=== PATIENT | male | born 1980 | race Caucasian/White ===

== ENCOUNTER 2017-12-21 12:14 | Emergency (ER) | payer OTHER ==
[~2017-12-21] VITALS: Ht 170.2 cm; Wt 88.5 kg
[~2017-12-21 12:14] MED LIST: CELEXA10 MG PO; CELEXA20 MG PO; LISINOPRIL5 MG; LISINOPRIL5 MG PO; SUBOXONE 8 MG-1 EAC3; TRAMADOL 50 MG50 MG PO
[2017-12-21 12:20] VITALS: BP 133/93
[2017-12-21] MEDS ORDERED: TRAMADOL 50 MG50 MG PO (12:45)
[2017-12-21] MEDS ORDERED: AMOXICILLIN 50500 MG PO (12:45)
== END 2017-12-21 12:50 | disposition home or self-care (01) ==
LOC: M.ERS 12:14
DX: K08.89 Other specified disorders of teeth and supporting structures (principal)

== ENCOUNTER 2018-04-23 12:04 | Emergency (ER) | payer OTHER ==
[~2018-04-23] VITALS: Ht 172.7 cm; Wt 88.5 kg
[~2018-04-23 12:04] MED LIST changes: +AMOXICILLIN 50500 MG PO
[2018-04-23 12:14] VITALS: BP 142/76
== END 2018-04-23 12:36 | disposition home or self-care (01) ==
LOC: M.ERS 12:04
DX: R11.2 Nausea with vomiting, unspecified (principal); F17.210 Nicotine dependence, cigarettes, uncomplicated; Z98.890 Other specified postprocedural states

== ENCOUNTER 2018-05-20 18:13 | Emergency (ER) | payer OTHER ==
[~2018-05-20] VITALS: Ht 170.2 cm; Wt 88.5 kg
[2018-05-20 19:01] LABS: HEMATOCRIT 49.4 % (42.0-52.0); HEMOGLOBIN 17.1 gm/dL (14.0-18.0); MCH 31.5 pg (26.0-34.0); MCHC 34.6 g/dL (28.0-37.0); MCV 90.9 fL (80.0-100.0); MPV 8.8 fl. (7.2-11.1); NUCLEATED RBCS 0 /100WBC; PLATELET COUNT* 169 thou/uL (150-400); RBC 5.44 mil/uL (4.50-6.00); RDW-CV 13.5 % (10.5-14.5); WBC 12.7 thou/uL (4.0-11.0)
[2018-05-20 19:12] LABS: CALCIUM 8.7 mg/dL (8.5-10.1); CREATININE 0.9 mg/dL (0.6-1.3); POTASSIUM 3.8 mmol/L (3.5-5.1)
[2018-05-20 19:18] LABS: ALBUMIN 3.8 g/dL (3.4-5.0); TOTAL BILIRUBIN 0.9 mg/dL (<0.1-1.0); TOTAL PROTEIN 7.3 g/dL (6.4-8.2)
[2018-05-20 19:33] LABS: ABSOLUTE LYMPHOCYTES 0.6 thou/uL (0.8-5.3); ABSOLUTE MONOCYTES 0.5 thou/uL (0.0-1.2); ABSOLUTE NEUTROPHILS 11.6 thou/uL (1.6-8.1); PLATELET ESTIMATE ADEQUATE
[2018-05-20] MEDS ORDERED: PREDNISONE50 MG PO (19:50)
[2018-05-20] MEDS ORDERED: ZPAK PO (19:50)
[2018-05-20] MEDS ORDERED: VENTOLIN HFA 1818 GM INH (19:50)
[2018-05-20 20:10] VITALS: BP 127/84
== END 2018-05-20 20:13 | disposition home or self-care (01) ==
LOC: M.ERS 18:13
PROVIDERS: Nurse Practitioner Family
DX: J18.1 Lobar pneumonia, unspecified organism (principal); F17.210 Nicotine dependence, cigarettes, uncomplicated; Z86.19 Personal history of other infectious and parasitic diseases

== ENCOUNTER 2018-06-20 17:52 | Emergency (ER) | payer OTHER ==
[~2018-06-20] VITALS: Ht 172.7 cm; Wt 86.2 kg
[~2018-06-20 17:52] MED LIST changes: +PREDNISONE50 MG PO; +VENTOLIN HFA 1818 GM INH; +ZPAK PO
[2018-06-20] MEDS ORDERED: LISINOPRIL5 MG PO (18:05)
[2018-06-20] MEDS ORDERED: TRAMADOL 50 MG50 MG PO (18:41)
[2018-06-20 18:52] VITALS: BP 145/74
== END 2018-06-20 18:53 | disposition home or self-care (01) ==
LOC: M.ERS 17:52
DX: M72.2 Plantar fascial fibromatosis (principal); F17.210 Nicotine dependence, cigarettes, uncomplicated; Z98.890 Other specified postprocedural states

== ENCOUNTER 2018-07-15 09:21 | Emergency (ER) | payer OTHER ==
[~2018-07-15] VITALS: Ht 172.7 cm; Wt 88.5 kg
[2018-07-15] MEDS ORDERED: ULTRAM 50MG TAB50 MG PO (09:46)
[2018-07-15] MEDS ORDERED: PREDNISONE 20 M20 M1 PO (09:46)
[2018-07-15 09:52] VITALS: BP 141/84
== END 2018-07-15 09:53 | disposition home or self-care (01) ==
LOC: M.ERS 09:21
DX: M79.672 Pain in left foot (principal); M79.671 Pain in right foot; F17.210 Nicotine dependence, cigarettes, uncomplicated; Z86.19 Personal history of other infectious and parasitic diseases

== ENCOUNTER 2018-07-17 11:03 | Emergency (ER) | payer OTHER ==
[~2018-07-17] VITALS: Ht 170.2 cm; Wt 88.5 kg
[~2018-07-17 11:03] MED LIST changes: +PREDNISONE 20 M20 M1 PO; +ULTRAM 50MG TAB50 MG PO
[2018-07-17 11:09] VITALS: BP 132/87
[2018-07-17] MEDS ORDERED: PENICILLIN VK500 MG PO (11:15)
== END 2018-07-17 11:24 | disposition home or self-care (01) ==
LOC: M.ERS 11:03
DX: K02.9 Dental caries, unspecified (principal); F17.210 Nicotine dependence, cigarettes, uncomplicated; Z86.19 Personal history of other infectious and parasitic diseases

== ENCOUNTER 2019-04-20 18:52 | Emergency (ER) | payer BC ==
[~2019-04-20] VITALS: Ht 172.7 cm; Wt 88.5 kg
[~2019-04-20 18:52] MED LIST changes: +PENICILLIN VK500 MG PO
[2019-04-20 18:58] VITALS: BP 134/89
== END 2019-04-20 19:18 | disposition home or self-care (01) ==
LOC: M.ERS 18:52
DX: R51 Headache (principal); F17.210 Nicotine dependence, cigarettes, uncomplicated

== ENCOUNTER 2019-09-14 13:54 | Emergency (ER) | payer BC ==
[~2019-09-14] VITALS: Ht 172.7 cm; Wt 88.5 kg
[2019-09-14] MEDS ORDERED: SUBOXONE 8 MG-1 EAC3 SUBLING (14:04)
[2019-09-14 14:23] LABS: URINE BILIRUBIN NEGATIVE (Negative); URINE BLOOD NEGATIVE (Negative); URINE CLARITY CLEAR; URINE COLOR YELLOW; URINE GLUCOSE-RANDOM NEGATIVE (Negative); URINE KETONES NEGATIVE (Negative); URINE LEUKOCYTES-REFLEX NEGATIVE (Negative); URINE NITRITE-REFLEX NEGATIVE (Negative); URINE PROTEIN NEGATIVE (Negative); URINE SPECIFIC GRAVITY 1.015 (1.005-1.030); URINE UROBILINOGEN 0.2 E.U./dl (0.2-1.0)
[2019-09-14 14:32] LABS: AMP/METHAMP Negative (Negative); BARBITURATES Negative (Negative); BENZODIAZEPINES Negative (Negative); COCAINE Negative (Negative); METHADONE Negative (Negative); OPIATES Negative (Negative); PCP Negative (Negative); THC Negative (Negative)
[2019-09-14] MEDS ORDERED: CLONIDINE HCL0.2 M2 PO (15:25)
[2019-09-14] MEDS ORDERED: ONDANSETRON HCL4 M2 PO (15:25)
[2019-09-14 15:50] VITALS: BP 148/85
== END 2019-09-14 15:51 | disposition home or self-care (01) ==
LOC: M.ERS 13:54
PROVIDERS: Nurse Practitioner Family
DX: F19.939 Other psychoactive substance use, unspecified with withdrawal, unspecified (principal); R00.0 Tachycardia, unspecified; F17.210 Nicotine dependence, cigarettes, uncomplicated; Z79.899 Other long term (current) drug therapy; Z86.19 Personal history of other infectious and parasitic diseases

== ENCOUNTER 2020-11-27 14:25 | Emergency (ER) | payer BC ==
[~2020-11-27] VITALS: Ht 170.2 cm; Wt 90.7 kg
[~2020-11-27 14:25] MED LIST changes: +CLONIDINE HCL0.2 M2 PO; +ONDANSETRON HCL4 M2 PO; +SUBOXONE 8 MG-1 EAC3 SUBLING
[2020-11-27] MEDS ORDERED: FLEXERIL PO (15:36)
[2020-11-27] MEDS ORDERED: HYDROXYZINE HCL25 M2 PO (15:36)
[2020-11-27 15:43] VITALS: BP 170/94
== END 2020-11-27 15:45 | disposition home or self-care (01) ==
LOC: M.ERS 14:25
DX: F19.239 Other psychoactive substance dependence with withdrawal, unspecified (principal); Z76.0 Encounter for issue of repeat prescription; F17.210 Nicotine dependence, cigarettes, uncomplicated; Z86.19 Personal history of other infectious and parasitic diseases

== ENCOUNTER 2021-04-11 16:57 | Emergency (ER) | payer BC ==
[~2021-04-11] VITALS: Ht 172.7 cm; Wt 90.7 kg
[~2021-04-11 16:57] MED LIST changes: +FLEXERIL PO; +HYDROXYZINE HCL25 M2 PO
[2021-04-11 17:10] VITALS: BP 154/103
[2021-04-11] MEDS ORDERED: ZOFRAN ODT4 MG DISSOLVE (17:22)
[2021-04-11] MEDS ORDERED: ATIVAN1 M1 PO (17:22)
== END 2021-04-11 17:37 | disposition home or self-care (01) ==
LOC: M.ERS 16:57
DX: F10.10 Alcohol abuse, uncomplicated (principal); R11.0 Nausea; F17.210 Nicotine dependence, cigarettes, uncomplicated; Z98.890 Other specified postprocedural states; Z79.899 Other long term (current) drug therapy

== ENCOUNTER 2021-04-13 13:39 | Emergency (ER) | payer BC ==
[~2021-04-13] VITALS: Ht 172.7 cm; Wt 90.7 kg
[~2021-04-13 13:39] MED LIST changes: +ATIVAN1 M1 PO; +ZOFRAN ODT4 MG DISSOLVE
[2021-04-13 14:19] LABS: ABSOLUTE EOSINOPHILS 0.3 thou/uL (0.0-0.7); ABSOLUTE LYMPHOCYTES 1.2 thou/uL (0.8-5.3); ABSOLUTE MONOCYTES 0.6 thou/uL (0.0-1.2); WBC 6.2 thou/uL (4.0-11.0)
[2021-04-13 14:28] LABS: ABSOLUTE BASOPHILS 0.1 thou/uL (0.0-0.2); BASOPHILS 0.9 %; EOSINOPHILS 4.9 %; HEMATOCRIT 50.3 % (42.0-52.0); HEMOGLOBIN 17.9 gm/dL (14.0-18.0); LYMPHOCYTES 19.6 %; MCH 34.5 pg (26.0-34.0); MCHC 35.7 g/dL (28.0-37.0); MCV 96.7 fL (80.0-100.0); MONOCYTES 10.4 %; MPV 7.5 fl. (7.2-11.1); NUCLEATED RBCS 0 /100WBC; PLATELET COUNT* 178 thou/uL (150-400); POLYS 64.2 %; RBC 5.21 mil/uL (4.50-6.00); RDW-CV 13.3 % (10.5-14.5)
[2021-04-13 14:33] LABS: CALCIUM 9.5 mg/dL (8.5-10.1); CREATININE 0.8 mg/dL (0.6-1.3); POTASSIUM 3.4 mmol/L (3.5-5.1)
[2021-04-13 14:36] LABS: ALBUMIN 4.3 g/dL (3.4-5.0); TOTAL BILIRUBIN 1.4 mg/dL (<0.1-1.0); TOTAL PROTEIN 8.3 g/dL (6.4-8.2)
[2021-04-13] MEDS ORDERED: ZOFRAN ODT4 MG DISSOLVE (15:17)
[2021-04-13] MEDS ORDERED: NEURONTIN 400400 M1 PO (15:17)
[2021-04-13 15:30] VITALS: BP 161/111
--- NOTE | 2021-04-14 13:56 | EKG ---
[place] [address] ELECTROCARDIOGRAM REPORT Name: KIRK VALLEJO Room: [facility]#: [id number] Admission: 04/13/21 Attend Phys: Discharge: 04/13/21 Date of : 76 Date of Service: 04/13/21 1434 Report #: [id number] THIS REPORT FOR: //name// [facility] ED Test Date: 2021-04-13 Test Time: 14:34:02 Pat Name: KIRK VALLEJO Department: Room: Gender: [place] Lead: : 1980 Requested By: Rosalio Kaur Order Number: [id number] MD: Bon Mata Measurements Intervals [place] Rate: 114 P: 32 OR: 160 QRS: -40 QRSD: 88 T: 19 QT: 326 QTc: 449 Interpretive Statements Sinus tachycardia Probable left atrial enlargement Inferior infarct, old Probable anteroseptal infarct, recent Baseline wander in lead(s) V1 Compared to ECG 06/21/2017 16:53:23 Sinus rate has increased Q waves no longer present Myocardial infarct finding still present Electronically Signed On 04-14-2021 13:55:56 CDT by Bon Mata [email or web address] <ELECTRONICALLY SIGNED> By: Bon Mata MD, [facility] 04/14/21 1355 1434 1434 Bon Mata MD, [facility] /EPI
== END 2021-04-13 15:30 | disposition home or self-care (01) ==
LOC: M.ERS 13:39
PROVIDERS: Emergency Medicine Emergency Medical Services
DX: F10.239 Alcohol dependence with withdrawal, unspecified (principal); Y90.9 Presence of alcohol in blood, level not specified; F17.210 Nicotine dependence, cigarettes, uncomplicated; Z86.19 Personal history of other infectious and parasitic diseases

== ENCOUNTER 2022-01-05 08:37 | Inpatient (IN) | payer OTHER ==
[~2022-01-05] VITALS: Ht 177.8 cm; Wt 77.1 kg
[2022-01-05] VITALS (12 sets, daily range): BP systolic 83–106; BP diastolic 38–60
[~2022-01-05 08:37] MED LIST changes: +NEURONTIN 400400 M1 PO
[2022-01-05 09:31] LABS: ABSOLUTE EOSINOPHILS 0.1 thou/uL (0.0-0.7); ABSOLUTE LYMPHOCYTES 0.7 thou/uL (0.8-5.3); ABSOLUTE NEUTROPHILS 10.5 thou/uL (1.6-8.1); BASOPHILS 0.4 %; EOSINOPHILS 0.7 %; HEMATOCRIT 43.8 % (42.0-52.0); HEMOGLOBIN 14.9 gm/dL (14.0-18.0); LYMPHOCYTES 5.9 %; MCH 32.6 pg (26.0-34.0); MCV 96.1 fL (80.0-100.0); MONOCYTES 8.2 %; MPV 9.5 fl. (7.2-11.1); NUCLEATED RBCS 0 /100WBC; PLATELET COUNT* 65 thou/uL (150-400); POLYS 84.8 %; RBC 4.56 mil/uL (4.50-6.00); RDW-CV 13.5 % (10.5-14.5); WBC 12.4 thou/uL (4.0-11.0)
[2022-01-05 09:34] LABS: CALCIUM 7.3 mg/dL (8.5-10.1); CREATININE 13.9 mg/dL (0.6-1.3); POTASSIUM 3.6 mmol/L (3.5-5.1)
[2022-01-05 09:36] LABS: APTT 46.6 Seconds (25.0-31.3); INR 3.8; PROTIME 36.9 Seconds (9.20-11.50)
[2022-01-05 09:47] LABS: ALBUMIN 3.1 g/dL (3.4-5.0); TOTAL BILIRUBIN 19.8 mg/dL (<0.1-1.0); TOTAL PROTEIN 5.1 g/dL (6.4-8.2)
[2022-01-05 10:33] LABS: URINE BLOOD 3+ (Negative); URINE CLARITY CLEAR; URINE COLOR BROWN; URINE GLUCOSE-RANDOM TRACE (Negative); URINE KETONES TRACE (Negative); URINE LEUKOCYTES-REFLEX TRACE (Negative); URINE PROTEIN 2+ (Negative); URINE SPECIFIC GRAVITY 1.025 (1.005-1.030)
[2022-01-05 10:35] LABS: URINE BILIRUBIN 3+ (Negative); URINE NITRITE-REFLEX POSITIVE (Negative)
[2022-01-05 10:44] LABS: AMP/METHAMP Negative (Negative); BARBITURATES Negative (Negative); BENZODIAZEPINES Negative (Negative); COCAINE Negative (Negative); METHADONE Negative (Negative); OPIATES Negative (Negative); PCP Negative (Negative); THC POSITIVE (Negative)
[2022-01-05 10:48] LABS: BACTERIA-REFLEX >30 Many /HPF (None Seen); MUCUS >6 Heavy strn/LPF (None Seen); SQUAMOUS 4-10 Moderate /LPF (0-3); URINE WBC-REFLEX 6-15 Few /HPF (0-5)
[2022-01-05 10:49] LABS: HYALINE CASTS 0-3 Few /LPF (None Seen)
--- NOTE | 2022-01-05 12:38 | EKG ---
[place] [address] ELECTROCARDIOGRAM REPORT Name: KIRK VALLEJO Kalee Room: [place] [address] ADM IN [facility]#: [id number] Admission: 01/05/22 Attend Phys: Karol De Luna Discharge: Date of : 76 Date of Service: 01/05/22 0843 Report #: [id number] THIS REPORT FOR: //name// [facility] ED Test Date: 2022-01-05 Test Time: 08:43:58 Pat Name: KIRK VALLEJO Department: Room: [facility] Gender: M Ice Cream Dipper: : 1980 Requested By: Rosalio Kaur Order Number: [id number] MD: Aleksander Barrientos Measurements Intervals [place] Rate: 76 P: 34 NV: 168 QRS: -36 QRSD: 110 T: 45 QT: 411 QTc: 463 Interpretive Statements Sinus rhythm septal q waves Left axis deviation Baseline wander in lead(s) V2 Compared to ECG 04/13/2021 14:34:02 Sinus tachycardia no longer present Electronically Signed On 01-05-2022 12:38:04 UNDER [employer]ERIFF by Aleksander Barrientos [email or web address] <ELECTRONICALLY SIGNED> By: Aleksander Barrientos MD, [facility] 01/05/22 1238 0843 0843 Aleksander Barrientos MD, [facility] /EPI
[2022-01-06] VITALS (44 sets, daily range): BP systolic 82–125; BP diastolic 39–73
[2022-01-06 03:16] LABS: HEMATOCRIT 35.9 % (42.0-52.0); MCH 33.1 pg (26.0-34.0); MCHC 35.2 g/dL (28.0-37.0); MCV 94.3 fL (80.0-100.0); MPV 9.4 fl. (7.2-11.1); RBC 3.81 mil/uL (4.50-6.00); RDW-CV 13.6 % (10.5-14.5); WBC 10.4 thou/uL (4.0-11.0)
[2022-01-06 03:21] LABS: HEMOGLOBIN 12.6 gm/dL (14.0-18.0)
[2022-01-06 03:27] LABS: POTASSIUM 3.5 mmol/L (3.5-5.1)
[2022-01-06 03:28] LABS: CREATININE 15.1 mg/dL (0.6-1.3)
[2022-01-06 13:47] LABS: ABSOLUTE EOSINOPHILS 0.2 thou/uL (0.0-0.7); ABSOLUTE LYMPHOCYTES 0.7 thou/uL (0.8-5.3); ABSOLUTE MONOCYTES 1.2 thou/uL (0.0-1.2); ABSOLUTE NEUTROPHILS 9.7 thou/uL (1.6-8.1); BASOPHILS 0.4 %; EOSINOPHILS 1.5 %; HEMATOCRIT 31.2 % (42.0-52.0); HEMOGLOBIN 10.7 gm/dL (14.0-18.0); LYMPHOCYTES 5.7 %; MCH 32.8 pg (26.0-34.0); MCHC 34.2 g/dL (28.0-37.0); MCV 95.8 fL (80.0-100.0); MONOCYTES 9.8 %; MPV 9.1 fl. (7.2-11.1); NUCLEATED RBCS 0 /100WBC; PLATELET COUNT* 58 thou/uL (150-400); POLYS 82.6 %; RBC 3.26 mil/uL (4.50-6.00); RDW-CV 13.2 % (10.5-14.5); WBC 11.7 thou/uL (4.0-11.0)
--- NOTE | 2022-01-06 13:48 | 2DMMODE ---
[place] [address] 2 D/M-MODE ECHOCARDIOGRAM Name: ANÍBAL VALLEJO Room: [address] IN [facility]#: [id number] Admission: 01/05/22 Attend Phys: Karol De Luna Discharge: Date of : 76 Date of Service: 01/06/22 1348 Report #: [id number] THIS REPORT FOR: cc: Juan Carlos Perez Lewis DO Liston, Michael J. MD [facility] ~ APPROVED REPORT Study performed: 01/06/2022 09:43:19 EXAM: Comprehensive 2D, Doppler, and color-flow Echocardiogram Patient Location: In-Patient Room #: [facility] Status: routine BSA: 1.95 HR: 86 bpm BP: 99/57 mmHg Rhythm: NSR Other Information Study Quality: Good Indications heart failure 2D Dimensions IVSd: 11.28 (7-11mm) LVOT Diam: 21.25 (18-24mm) LVDd: 46.33 mm PWd: 9.42 (7-11mm) Ascending Ao: 30.05 (22-36mm) LVDs: 25.47 (25-40mm) Aortic Root: 33.42 mm Volumes Left Atrial Volume (Systole) LA ESV Index: 30.70 mL/m2 Aortic Valve AoV Peak Pedro.: 1.49 m/s AO Peak Gr.: 8.89 mmHg LVOT Max P.36 mmHg AO Mean Gr.: 4.45 mmHg LVOT Mean P.35 mmHg LVOT Max V: 1.36 m/s AO V2 VTI: 28.19 cm LVOT Mean V: 0.83 m/s RICKI (VTI): 3.64 cm2 LVOT V1 VTI: 28.96 [place] [address] 2 D/M-MODE ECHOCARDIOGRAM Name: ANÍBAL VALLEJO Room: [address] IN ..#: [id number] Admission: 01/05/22 Attend Phys: Karol De Luna Discharge: Date of : 76 Date of Service: 01/06/22 1348 Report #: [id number] Mitral Valve E/A Ratio: 1.41 MV Decel. Time: 236.20 ms MV E Max Pedro.: 1.22 m/s MV PHT: 68.50 ms MVA (PHT): 3.21 cm2 TDI E/Lateral E': 7.63 E/Medial E': 12.20 Medial E' Pedro.: 0.10 m/s Lateral E' Pedro.: 0.16 m/s Pulmonary Valve PV Peak Pedro.: 0.91 m/s PV Peak Gr.: 3.32 mmHg Tricuspid Valve RAP Estimate: 5.00 mmHg TR Peak Gr.: 30.88 mmHg RVSP: 35.00 mmHg PA Pressure: 35.00 mmHg Left Ventricle The left ventricle is normal size. There is normal LV segmental wall motion. There is normal left ventricular wall thickness. Left ventricular systolic function is normal. LVEF is 60-65%. The left ventricular diastolic function is normal. Right Ventricle The right ventricle is normal size. The right ventricular systolic function is normal. Atria The left atrium size is normal. The right atrium size is normal. Aortic Valve The aortic valve is normal in structure. No aortic regurgitation is present. There is no aortic valvular stenosis. Mitral Valve The mitral valve is normal in structure. Trace mitral regurgitation. No evidence of mitral valve stenosis. Tricuspid Valve The tricuspid valve is normal in structure. Mild tricuspid regurgitation. The RVSP is 35-[place] [address] 2 D/M-MODE ECHOCARDIOGRAM Name: ANÍBAL VALLEJO Room: [address]#: [id number] Admission: 01/05/22 Attend Phys: Karol De Luna Discharge: Date of : 76 Date of Service: 01/06/22 1348 Report #: [id number] Pulmonic Valve The pulmonary valve is normal in structure. Mild pulmonic regurgitation. Great Vessels The aortic root is normal in size. IVC is normal in size and collapses >50% with inspiration. Pericardium There is no pericardial effusion. <Conclusion> The left ventricle is normal size. There is normal left ventricular wall thickness. Left ventricular systolic function is normal. LVEF is 60-65%. The left ventricular diastolic function is normal. Trace mitral regurgitation. Mild tricuspid regurgitation. The RVSP is 35-40 mmHg. IVC is normal in size and collapses >50% with inspiration. <ELECTRONICALLY SIGNED> By: Aníbal Jones MD, FACC 01/06/22 1348 1348 1348 Aníbal Jones MD, FACC /INF
[2022-01-06 18:59] LABS: INR 2.9; PROTIME 28.7 Seconds (9.20-11.50)
[2022-01-07] VITALS (64 sets, daily range): BP systolic 96–163; BP diastolic 51–99
[2022-01-07 04:20] LABS: INR 1.9; PROTIME 19.2 Seconds (9.20-11.50)
[2022-01-07 04:33] LABS: CALCIUM 7.2 mg/dL (8.5-10.1); MAGNESIUM 2.8 mg/dL (1.8-2.4); PHOSPHORUS* 5.4 mg/dL (2.5-4.9); POTASSIUM 3.5 mmol/L (3.5-5.1)
[2022-01-07 04:37] LABS: CREATININE 11.7 mg/dL (0.6-1.3)
[2022-01-07 12:23] LABS: HEMATOCRIT 33.3 % (42.0-52.0); HEMOGLOBIN 11.7 gm/dL (14.0-18.0); MCHC 35.1 g/dL (28.0-37.0); MCV 94.1 fL (80.0-100.0); MPV 8.5 fl. (7.2-11.1); NUCLEATED RBCS 1 /100WBC; PLATELET COUNT* 81 thou/uL (150-400); RBC 3.54 mil/uL (4.50-6.00); RDW-CV 13.6 % (10.5-14.5); WBC 14.6 thou/uL (4.0-11.0)
[2022-01-07 12:37] LABS: APTT 37.6 Seconds (25.0-31.3); INR 1.9
[2022-01-07 12:50] LABS: ALBUMIN 3.1 g/dL (3.4-5.0); CALCIUM 7.7 mg/dL (8.5-10.1); CREATININE 11.9 mg/dL (0.6-1.3); MAGNESIUM 2.8 mg/dL (1.8-2.4); POTASSIUM 3.5 mmol/L (3.5-5.1); TOTAL BILIRUBIN 24.5 mg/dL (<0.1-1.0); TOTAL PROTEIN 5.1 g/dL (6.4-8.2)
[2022-01-07 13:04] LABS: ABSOLUTE EOSINOPHILS 0.3 thou/uL (0.0-0.7); ABSOLUTE LYMPHOCYTES 0.7 thou/uL (0.8-5.3); ABSOLUTE MONOCYTES 1.9 thou/uL (0.0-1.2); ABSOLUTE NEUTROPHILS 11.7 thou/uL (1.6-8.1)
[2022-01-07 13:05] LABS: PLATELET ESTIMATE DECREASED
[2022-01-07] MEDS ORDERED: ATENOLOL 25 MG25 M1 PO (14:39)
[2022-01-07 17:20] LABS: HEMATOCRIT 34.2 % (42.0-52.0); HEMOGLOBIN 11.9 gm/dL (14.0-18.0); MCH 32.9 pg (26.0-34.0); MCHC 34.9 g/dL (28.0-37.0); MCV 94.5 fL (80.0-100.0); MPV 8.5 fl. (7.2-11.1); RBC 3.62 mil/uL (4.50-6.00); RDW-CV 13.6 % (10.5-14.5); WBC 16.2 thou/uL (4.0-11.0)
[2022-01-07 19:46] LABS: BE -4.6 mmol/L (-2 to +3)
[2022-01-07 19:49] LABS: pH 7.253 (7.340-7.450)
[2022-01-07 19:50] LABS: PCO2 53.3 mmHg (35.0-45.0); PO2 138.6 mmHg (75.0-100.0)
[2022-01-07 20:18] LABS: CALCIUM 7.9 mg/dL (8.5-10.1); CREATININE 8.8 mg/dL (0.6-1.3); POTASSIUM 3.8 mmol/L (3.5-5.1)
[2022-01-07 20:31] LABS: TOTAL BILIRUBIN 27.5 mg/dL (<0.1-1.0); TOTAL PROTEIN 5.1 g/dL (6.4-8.2)
[2022-01-08] VITALS (160 sets, daily range): BP systolic 72–129; BP diastolic 31–86
[2022-01-08 04:15] LABS: HEMATOCRIT 35.4 % (42.0-52.0); HEMOGLOBIN 12.4 gm/dL (14.0-18.0); MCV 94.4 fL (80.0-100.0); MPV 8.8 fl. (7.2-11.1); RBC 3.75 mil/uL (4.50-6.00); RDW-CV 14.1 % (10.5-14.5); WBC 16.7 thou/uL (4.0-11.0)
[2022-01-08 04:39] LABS: ALBUMIN 2.9 g/dL (3.4-5.0); CALCIUM 8.5 mg/dL (8.5-10.1); CREATININE 9.6 mg/dL (0.6-1.3); MAGNESIUM 2.5 mg/dL (1.8-2.4); POTASSIUM 4.1 mmol/L (3.5-5.1); TOTAL BILIRUBIN 28.8 mg/dL (<0.1-1.0); TOTAL PROTEIN 5.1 g/dL (6.4-8.2)
[2022-01-08 07:39] LABS: PHOSPHORUS* 4.6 mg/dL (2.5-4.9)
[2022-01-08 09:08] LABS: HEPATITIS B SURFACE AG Negative (Negative)
[2022-01-08 09:08] LABS: HEPATITIS B SURFACE AG Negative (Negative)
[2022-01-08 09:18] LABS: BE -3.2 mmol/L (-2 to +3); PCO2 28.1 mmHg (35.0-45.0); pH 7.458 (7.340-7.450)
[2022-01-08 09:20] LABS: PO2 132.5 mmHg (75.0-100.0)
[2022-01-08 09:27] LABS: ABSOLUTE EOSINOPHILS 0.1 thou/uL (0.0-0.7); ABSOLUTE LYMPHOCYTES 0.6 thou/uL (0.8-5.3); ABSOLUTE MONOCYTES 0.4 thou/uL (0.0-1.2); ABSOLUTE NEUTROPHILS 12.3 thou/uL (1.6-8.1); BASOPHILS 0.2 %; EOSINOPHILS 0.4 %; HEMATOCRIT 34.8 % (42.0-52.0); HEMOGLOBIN 12.1 gm/dL (14.0-18.0); LYMPHOCYTES 4.1 %; MCH 32.9 pg (26.0-34.0); MCHC 34.7 g/dL (28.0-37.0); MCV 94.9 fL (80.0-100.0); MONOCYTES 3.2 %; MPV 8.5 fl. (7.2-11.1); NUCLEATED RBCS 1 /100WBC; PLATELET COUNT* 70 thou/uL (150-400); POLYS 92.1 %; RBC 3.67 mil/uL (4.50-6.00); RDW-CV 13.5 % (10.5-14.5); WBC 13.4 thou/uL (4.0-11.0)
[2022-01-09] VITALS (196 sets, daily range): BP systolic 80–144; BP diastolic 41–88
[2022-01-09 03:04] LABS: ABSOLUTE LYMPHOCYTES 1.1 thou/uL (0.8-5.3); ABSOLUTE MONOCYTES 1.8 thou/uL (0.0-1.2); ABSOLUTE NEUTROPHILS 19.1 thou/uL (1.6-8.1); BASOPHILS 0.1 %; EOSINOPHILS 0.2 %; HEMATOCRIT 35.3 % (42.0-52.0); HEMOGLOBIN 12.2 gm/dL (14.0-18.0); LYMPHOCYTES 4.8 %; MCH 32.9 pg (26.0-34.0); MCHC 34.7 g/dL (28.0-37.0); MCV 94.9 fL (80.0-100.0); MONOCYTES 8.3 %; MPV 9.1 fl. (7.2-11.1); NUCLEATED RBCS 0 /100WBC; PLATELET COUNT* 77 thou/uL (150-400); POLYS 86.6 %; RBC 3.72 mil/uL (4.50-6.00); RDW-CV 14.1 % (10.5-14.5); WBC 22.1 thou/uL (4.0-11.0)
[2022-01-09 03:31] LABS: CALCIUM 8.6 mg/dL (8.5-10.1); MAGNESIUM 2.7 mg/dL (1.8-2.4); POTASSIUM 3.4 mmol/L (3.5-5.1); TOTAL BILIRUBIN 30.7 mg/dL (<0.1-1.0); TOTAL PROTEIN 5.1 g/dL (6.4-8.2)
[2022-01-09 03:40] LABS: CREATININE 8.6 mg/dL (0.6-1.3)
[2022-01-09 08:50] LABS: BE -4.7 mmol/L (-2 to +3); PCO2 27.3 mmHg (35.0-45.0); pH 7.438 (7.340-7.450)
[2022-01-09 14:30] LABS: INR 2.1; PROTIME 21.4 Seconds (9.20-11.50)
--- NOTE | 2022-01-09 19:14 | CON ---
[address] [address] CONSULTATION Name: KIRK VALLEJO Room: [address] IN M.R.#: [id number] Admission: 01/05/22 Attend Phys: Emilie Walsh Discharge: Date of : 76 Report #: [id number] THIS REPORT FOR: cc: Juan Carlos Perez Lewis DO Pervez, Adeel MD ~ DATE OF CONSULTATION: 01/08/2022 REQUESTING PHYSICIAN: Dr. De Luna. INDICATION FOR CONSULTATION: Acute hypoxemic respiratory failure. HISTORY OF PRESENT ILLNESS: This is a 41-year-old gentleman, past medical history includes a history of alcohol as well as drug abuse. I do not have details of his drug abuse available. The patient is also a smoker. The patient is reported to have stopped drinking about 5 or 6 days before admission and now presented with acute mental status. Currently, the patient is in acute renal failure. He has pancreatitis, has hepatic encephalopathy as well and does have coagulopathy, likely secondary to liver disease. He has been having hemodialysis. He developed increasing respiratory distress last evening, and therefore, he was endotracheally intubated and I was consulted. At this point, the patient in fact is stable on the ventilator and there is significant improvement in the chest x-ray since yesterday. Likely, there was pulmonary vascular congestion on the chest x-ray yesterday, which is not present on the x-ray before dialysis today. We have been down to 40% FiO2 and 8 of PEEP. He is saturating in the high 90s. The patient was hemodynamically stable prior to dialysis. He had 2 liters of fluid removed during dialysis after which he dropped to a blood pressure of around 72 systolic, therefore, I started him on norepinephrine, which is at 0.1 at this time and a dose of albumin is also being administered. The patient has required a lot less sedation than I expected. This morning, he was on 2 of Versed and 75 of fentanyl. We discontinued Versed. He is only on fentanyl. He still appears to be fairly well sedated and is around at rest -3. The patient is unable to provide a further history or review of systems. PAST MEDICAL HISTORY: There is a possible history of hepatitis C, also gallbladder surgery, hernia surgery, plantar fasciitis. SOCIAL HISTORY: History of heavy alcohol use, smoker, history of drug abuse. I do not have details of his drug abuse available. CURRENT MEDICATIONS: [place] [address] CONSULTATION Name: KIRK VALLEJO Room: [address]#: [id number] Admission: 01/05/22 Attend Phys: Emilie Walsh Discharge: Date of : 76 Report #: [id number] HOME MEDICATIONS: List also in [facility] reviewed. ALLERGIES: No known drug allergies. FAMILY HISTORY: No pertinent family history known at this time. VACCINATION HISTORY: Unknown if vaccinated for COVID-19. PHYSICAL EXAMINATION: GENERAL: He is well sedated. VITAL SIGNS: In the records, these are reviewed. Ventilator settings also in [facility] reviewed. HEENT: Head is normocephalic and atraumatic. He does appear to be jaundiced. NECK: There is an endotracheal tube in good position. NECK: Does not show raised JVP, asymmetry, mass or lymph nodes. CHEST: Symmetrical expansion on inspection and palpation. On auscultation, chest is clear. HEART: Regular. There is no murmur. ABDOMEN: Soft and nontender. EXTREMITIES: Lower extremities do show edema bilaterally. There is no calf tenderness. SKIN: Dry and intact. NEUROLOGIC: Moves all extremities to pain. He is on sedation. Chest x-rays are as discussed above. Lab work as well as arterial blood gases in [facility] reviewed. ASSESSMENT AND PLAN: 1. Acute hypoxemic respiratory failure secondary to liver failure and acute renal failure. We are down to 40% FiO2 with 8 of PEEP. He is ventilating and oxygenating adequately. He has required a lot less sedation than I expected. In fact, I discontinued his Versed. We will give him p.r.n. Ativan. We will continue with fentanyl. If additional sedation is needed, then we will start with Precedex. Considering that he is hypotensive, I will go ahead and cut back his PEEP to 5. 2. Hypotension post-dialysis likely due to fluid removal. He has pancreatitis. He may be third spacing. Thus, I will go ahead and give him a dose of albumin for now, started norepinephrine. His blood pressure was in the 70s systolic, would follow response. 3. Pulmonary infiltrates. These in fact look a lot better on the chest x-ray today than yesterday, so a significant amount of the component of the findings is likely due to pulmonary vascular congestion. Sputum culture was sent yesterday is pending. He is broadly covered with antibiotics. [address] [place] [address] CONSULTATION Name: KIRK VALLEJO Room: [address] IN ..#: [id number] Admission: 01/05/22 Attend Phys: Emilie Walsh Discharge: Date of : 76 Report #: [id number] 4. Chronic liver disease/hepatic encephalopathy/coagulopathy. Gastroenterology service is on the case. 5. Acute pancreatitis. He was on cefepime and vancomycin already. I added Flagyl for atypical coverage. Cultures are pending as above. 6. History of smoking. He does not appear to be actively bronchospastic. Continue with DuoNebs, will taper off steroids if tolerated. 7. History of alcohol abuse as above. He is needing less sedation than expected. We will follow. If he does not wake up off sedation, consider repeating a CT head. He is still receiving IV fluids at 100 an hour, which contain thiamine and folate. 8. Hyperglycemia, insulin sliding scale. 9. Gastrointestinal prophylaxis, on Protonix. Defer to Gastroenterology. The patient is critically ill at this time. Total time spent providing critical care to this patient today exceeds 45 minutes. <ELECTRONICALLY SIGNED> By: Ar Wolf MD 01/09/22 1914 1239 1907Aalex Wolf MD /nt
[2022-01-10] VITALS (69 sets, daily range): BP systolic 87–129; BP diastolic 46–76
[2022-01-10 04:15] LABS: INR 2.2; PROTIME 21.8 Seconds (9.20-11.50)
[2022-01-10 08:38] LABS: POTASSIUM 4.1 mmol/L (3.5-5.1)
[2022-01-10 08:39] LABS: CREATININE 10.9 mg/dL (0.6-1.3)
[2022-01-10 12:15] LABS: HEMATOCRIT 37.1 % (42.0-52.0); HEMOGLOBIN 12.8 gm/dL (14.0-18.0); MCH 32.9 pg (26.0-34.0); MCHC 34.4 g/dL (28.0-37.0); MCV 95.7 fL (80.0-100.0); MPV 9.7 fl. (7.2-11.1); PLATELET COUNT* 86 thou/uL (150-400); RBC 3.88 mil/uL (4.50-6.00); RDW-CV 14.8 % (10.5-14.5); WBC 27.8 thou/uL (4.0-11.0)
[2022-01-10 14:09] LABS: BE -7.6 mmol/L (-2 to +3); PCO2 33.1 mmHg (35.0-45.0); PO2 97.5 mmHg (75.0-100.0); pH 7.335 (7.340-7.450)
[2022-01-10 17:06] LABS: HCV QUANT BY PCR HCV Not Detected IU/mL (())
[2022-01-10 20:43] LABS: ABSOLUTE LYMPHOCYTES 0.8 thou/uL (0.8-5.3); ABSOLUTE MONOCYTES 1.2 thou/uL (0.0-1.2); ABSOLUTE NEUTROPHILS 25.7 thou/uL (1.6-8.1); LYMPHOCYTES 2.8 %; MONOCYTES 4.4 %; POLYS 92.6 %
[2022-01-10 20:44] LABS: ABSOLUTE BASOPHILS 0.1 thou/uL (0.0-0.2); BASOPHILS 0.2 %
[2022-01-11] VITALS (32 sets, daily range): BP systolic 100–142; BP diastolic 51–76
[2022-01-11 05:16] LABS: CALCIUM 8.4 mg/dL (8.5-10.1); POTASSIUM 3.8 mmol/L (3.5-5.1)
[2022-01-12] VITALS (49 sets, daily range): BP systolic 83–136; BP diastolic 37–84
[2022-01-12 05:09] LABS: ALBUMIN 2.8 g/dL (3.4-5.0); CALCIUM 8.3 mg/dL (8.5-10.1); POTASSIUM 4.1 mmol/L (3.5-5.1); TOTAL BILIRUBIN 33.6 mg/dL (<0.1-1.0); TOTAL PROTEIN 4.8 g/dL (6.4-8.2)
[2022-01-12 05:16] LABS: CREATININE 10.5 mg/dL (0.6-1.3)
[2022-01-12 09:31] LABS: HEMATOCRIT 35.1 % (42.0-52.0); HEMOGLOBIN 11.8 gm/dL (14.0-18.0); MCH 32.5 pg (26.0-34.0); MCHC 33.5 g/dL (28.0-37.0); MPV 11.4 fl. (7.2-11.1); NUCLEATED RBCS 1 /100WBC; PLATELET COUNT* 68 thou/uL (150-400); RBC 3.62 mil/uL (4.50-6.00); RDW-CV 15.4 % (10.5-14.5); WBC 33.2 thou/uL (4.0-11.0)
[2022-01-12 09:57] LABS: ABSOLUTE MONOCYTES 0.7 thou/uL (0.0-1.2); ABSOLUTE NEUTROPHILS 30.5 thou/uL (1.6-8.1); METAMYELOCYTES 3 %
[2022-01-12 09:58] LABS: HYPOCHROMASIA 1+; PLATELET ESTIMATE DECREASED; POLYCHROMASIA Occasional
[2022-01-12 09:59] LABS: MACROCYTES Occasional; MICROCYTES Occasional
[2022-01-12 10:35] LABS: INR 2.2
[2022-01-12 10:56] LABS: URINE BLOOD 3+ (Negative); URINE CLARITY SL CLOUDY; URINE COLOR BROWN; URINE GLUCOSE-RANDOM 1+ (Negative); URINE KETONES 1+ (Negative); URINE LEUKOCYTES-REFLEX TRACE (Negative); URINE PROTEIN 2+ (Negative); URINE SPECIFIC GRAVITY >= 1.030 (1.005-1.030)
[2022-01-12 10:57] LABS: ICTOTEST (BILI CONFIRMATORY) Positive (Negative); URINE BILIRUBIN 3+ (Negative); URINE NITRITE-REFLEX POSITIVE (Negative)
[2022-01-12 11:11] LABS: SQUAMOUS >10 Many /LPF (0-3); URINE RBC >20 Many /HPF (0-2); URINE WBC-REFLEX 0-5 Rare /HPF (0-5)
[2022-01-12 11:12] LABS: AMORPHOUS URATES Many /LPF (None Seen); BACTERIA-REFLEX >30 Many /HPF (None Seen); CRYSTALS None Seen /LPF (None Seen); HYALINE CASTS 0-3 Few /LPF (None Seen); MUCUS None Seen strn/LPF (None Seen)
[2022-01-12 13:16] LABS: BE -1.7 mmol/L (-2 to +3); PCO2 VENOUS 40.8 mmHg (41.0-51.0); PO2 VENOUS 79.4 mmHg (35.0-45.0)
[2022-01-13] VITALS (27 sets, daily range): BP systolic 93–135; BP diastolic 45–90
[2022-01-13 06:55] LABS: ABSOLUTE LYMPHOCYTES 0.6 thou/uL (0.8-5.3); ABSOLUTE MONOCYTES 1.8 thou/uL (0.0-1.2); ABSOLUTE NEUTROPHILS 24.1 thou/uL (1.6-8.1); BASOPHILS 0.1 %; EOSINOPHILS 0.1 %; HEMATOCRIT 32.6 % (42.0-52.0); HEMOGLOBIN 10.9 gm/dL (14.0-18.0); LYMPHOCYTES 2.3 %; MCH 32.5 pg (26.0-34.0); MCHC 33.5 g/dL (28.0-37.0); MCV 97.1 fL (80.0-100.0); MONOCYTES 6.8 %; MPV 10.6 fl. (7.2-11.1); NUCLEATED RBCS 1 /100WBC; POLYS 90.7 %; RBC 3.36 mil/uL (4.50-6.00); RDW-CV 15.8 % (10.5-14.5); WBC 26.6 thou/uL (4.0-11.0)
[2022-01-13 06:59] LABS: INR 2.3
[2022-01-13 07:13] LABS: ALBUMIN 2.6 g/dL (3.4-5.0); CALCIUM 7.9 mg/dL (8.5-10.1); POTASSIUM 4.8 mmol/L (3.5-5.1); TOTAL BILIRUBIN 31.5 mg/dL (<0.1-1.0); TOTAL PROTEIN 4.4 g/dL (6.4-8.2)
[2022-01-13 07:14] LABS: CREATININE 8.5 mg/dL (0.6-1.3)
[2022-01-13 08:50] LABS: HYPOCHROMASIA 2+; PLATELET ESTIMATE DECREASED
[2022-01-13 08:51] LABS: ANISOCYTOSIS 1+; PLATELET COUNT* 80 thou/uL (150-400); TARGET CELLS 1+
[2022-01-14] VITALS (66 sets, daily range): BP systolic 70–155; BP diastolic 40–91
[2022-01-14 05:11] LABS: HEMATOCRIT 33.8 % (42.0-52.0); HEMOGLOBIN 11.3 gm/dL (14.0-18.0); MCH 32.3 pg (26.0-34.0); MCHC 33.4 g/dL (28.0-37.0); MCV 96.7 fL (80.0-100.0); NUCLEATED RBCS 0 /100WBC; PLATELET COUNT* 77 thou/uL (150-400); RDW-CV 16.5 % (10.5-14.5); WBC 26.6 thou/uL (4.0-11.0)
[2022-01-14 06:25] LABS: ALBUMIN 2.4 g/dL (3.4-5.0); CALCIUM 8.1 mg/dL (8.5-10.1); MAGNESIUM 3.4 mg/dL (1.8-2.4); POTASSIUM 5.5 mmol/L (3.5-5.1); TOTAL BILIRUBIN 32.8 mg/dL (<0.1-1.0); TOTAL PROTEIN 4.4 g/dL (6.4-8.2)
[2022-01-14 06:29] LABS: CREATININE 10.2 mg/dL (0.6-1.3)
[2022-01-14 06:33] LABS: INR 2.3; PROTIME 22.7 Seconds (9.20-11.50)
[2022-01-14 09:20] LABS: ABSOLUTE BASOPHILS 0.1 thou/uL (0.0-0.2); ABSOLUTE LYMPHOCYTES 0.3 thou/uL (0.8-5.3); ABSOLUTE MONOCYTES 2.3 thou/uL (0.0-1.2); BASOPHILS 0.4 %; HEMATOCRIT 36.9 % (42.0-52.0); HEMOGLOBIN 12.6 gm/dL (14.0-18.0); MCH 32.7 pg (26.0-34.0); MCHC 34.1 g/dL (28.0-37.0); MCV 95.9 fL (80.0-100.0); MONOCYTES 7.2 %; MPV 11.2 fl. (7.2-11.1); NUCLEATED RBCS 0 /100WBC; PLATELET COUNT* 77 thou/uL (150-400); POLYS 91.4 %; RBC 3.85 mil/uL (4.50-6.00); RDW-CV 16.4 % (10.5-14.5); WBC 31.8 thou/uL (4.0-11.0)
[2022-01-14 09:24] LABS: ABSOLUTE LYMPHOCYTES 0.3 thou/uL (0.8-5.3); ABSOLUTE MONOCYTES 1.3 thou/uL (0.0-1.2); METAMYELOCYTES 1 %; PLATELET ESTIMATE DECREASED
[2022-01-14 11:06] LABS: ALBUMIN 2.5 g/dL (3.4-5.0); CALCIUM 8.2 mg/dL (8.5-10.1); CREATININE 10.2 mg/dL (0.6-1.3); POTASSIUM 5.6 mmol/L (3.5-5.1); TOTAL BILIRUBIN 33.2 mg/dL (<0.1-1.0); TOTAL PROTEIN 4.4 g/dL (6.4-8.2)
[2022-01-14 14:48] LABS: BE -6.9 mmol/L (-2 to +3); PCO2 28.2 mmHg (35.0-45.0)
[2022-01-15] VITALS (60 sets, daily range): BP systolic 79–143; BP diastolic 34–86
[2022-01-15 00:02] LABS: CALCIUM 7.9 mg/dL (8.5-10.1); CREATININE 10.3 mg/dL (0.6-1.3)
[2022-01-15 00:04] LABS: POTASSIUM 6.2 mmol/L (3.5-5.1)
[2022-01-15 05:27] LABS: ABSOLUTE LYMPHOCYTES 0.3 thou/uL (0.8-5.3); ABSOLUTE MONOCYTES 2.7 thou/uL (0.0-1.2); ABSOLUTE NEUTROPHILS 26.2 thou/uL (1.6-8.1); BASOPHILS 0.1 %; HEMOGLOBIN 12.1 gm/dL (14.0-18.0); LYMPHOCYTES 1.1 %; MCH 32.3 pg (26.0-34.0); MCHC 33.7 g/dL (28.0-37.0); MONOCYTES 9.2 %; MPV 11.1 fl. (7.2-11.1); NUCLEATED RBCS 0 /100WBC; PLATELET COUNT* 119 thou/uL (150-400); POLYS 89.6 %; RBC 3.75 mil/uL (4.50-6.00); RDW-CV 17.4 % (10.5-14.5); WBC 29.2 thou/uL (4.0-11.0)
[2022-01-15 05:41] LABS: LIPASE 1073 U/L (73-393); TRIGLYCERIDE 106 mg/dL (<150)
[2022-01-15 05:49] LABS: ALBUMIN 2.5 g/dL (3.4-5.0); CREATININE 10.6 mg/dL (0.6-1.3); MAGNESIUM 3.4 mg/dL (1.8-2.4); TOTAL BILIRUBIN 37.4 mg/dL (<0.1-1.0); TOTAL PROTEIN 4.6 g/dL (6.4-8.2)
--- NOTE | 2022-01-15 09:47 | CON ---
[address] [address] CONSULTATION Name: KIRK VALLEJO Room: [address] IN ..#: [id number] Admission: 01/05/22 Attend Phys: Emilie Walsh Discharge: Date of : 76 Report #: [id number] THIS REPORT FOR: cc: Juan Carlos Perez Lewis DO Arakelov, Alexandr V. MD ~ DATE OF CONSULTATION: 01/06/2022 REQUESTING PHYSICIAN: Karol De Luna DO REASON FOR CONSULTATION: Acute kidney injury. HISTORY OF PRESENT ILLNESS: The patient is a 41-year-old white man with medical history is not obtainable to me. I reviewed the notes from the Emergency Room and apparently the patient has a history of alcoholism and tobaccoism, who presents to the emergency room with complaints of altered mental status, was diagnosed with alcohol withdrawal, likely liver failure and acute kidney injury, apparently been drinking alcohol daily, last drink was 5 days ago. MEDICATIONS PRIOR TO ADMISSION: Unknown. ADDITIONAL PAST MEDICAL HISTORY: Also reveal history of hepatitis C and drug abuse. REVIEW OF SYSTEMS: Unobtainable due to altered mental status. PHYSICAL EXAMINATION: GENERAL: He is in Intensive Care Unit. He is not intubated, not on oxygen, agitated. ____ jaundice. NECK: Supple. LUNGS: Clear. CARDIOVASCULAR: Regular rate. ABDOMEN: Soft, obese. EXTREMITIES: Lower extremities, no edema. LABORATORY DATA: Serum sodium 115, potassium 3.5, chloride 83, carbon dioxide 25, BUN 144, creatinine 15.1, it is up from 13.9 yesterday. His ammonia level is 92. Lipase level is 2015. ASSESSMENT: 1. Acute kidney injury, could be hepatorenal syndrome. 2. Liver failure. 3. Alcohol abuse. 4. Drug abuse. 5[place] [address] CONSULTATION Name: KIRK VALLEJO Kalee Room: [address]#: [id number] Admission: 01/05/22 Attend Phys: Emilie Walsh Discharge: Date of : 76 Report #: [id number] 6. Likely pancreatitis with elevated lipase, AST. His total bilirubin level is 19.8. PLAN: Continue with normal saline for now. The patient will need to be started on emergent dialysis. A 40 minutes spent on this consultation. It is critical. The patient's prognosis is very poor. We will definitely involve tube teller in this case. Emergent placement of dialysis line. Thank you very much for my opinion. <ELECTRONICALLY SIGNED> By: Fitz Bailey MD 01/15/22 0947 0943 [id number] Mara Bailey MD /nt
[2022-01-15 12:29] LABS: INR 1.9; PROTIME 19.1 Seconds (9.20-11.50)
[2022-01-15 16:40] LABS: CALCIUM 7.9 mg/dL (8.5-10.1); MAGNESIUM 2.8 mg/dL (1.8-2.4)
[2022-01-15 16:44] LABS: CREATININE 7.3 mg/dL (0.6-1.3)
[2022-01-16] VITALS (30 sets, daily range): BP systolic 81–138; BP diastolic 38–88
[2022-01-16 04:27] LABS: ABSOLUTE BASOPHILS 0.2 thou/uL (0.0-0.2); ABSOLUTE LYMPHOCYTES 0.5 thou/uL (0.8-5.3); ABSOLUTE MONOCYTES 2.1 thou/uL (0.0-1.2); ABSOLUTE NEUTROPHILS 19.6 thou/uL (1.6-8.1); BASOPHILS 0.9 %; EOSINOPHILS 0.1 %; HEMATOCRIT 32.9 % (42.0-52.0); HEMOGLOBIN 11.4 gm/dL (14.0-18.0); LYMPHOCYTES 2.1 %; MCHC 34.6 g/dL (28.0-37.0); MCV 95.4 fL (80.0-100.0); MONOCYTES 9.2 %; MPV 11.1 fl. (7.2-11.1); NUCLEATED RBCS 1 /100WBC; PLATELET COUNT* 128 thou/uL (150-400); POLYS 87.7 %; RBC 3.45 mil/uL (4.50-6.00); RDW-CV 17.7 % (10.5-14.5); WBC 22.3 thou/uL (4.0-11.0)
[2022-01-16 04:35] LABS: INR 2.1; PROTIME 20.7 Seconds (9.20-11.50)
[2022-01-16 04:49] LABS: PHOSPHORUS* 9.2 mg/dL (2.5-4.9)
[2022-01-16 04:54] LABS: ALBUMIN 2.8 g/dL (3.4-5.0); CALCIUM 7.6 mg/dL (8.5-10.1); TOTAL BILIRUBIN 41.9 mg/dL (<0.1-1.0); TOTAL PROTEIN 4.2 g/dL (6.4-8.2)
[2022-01-16 05:17] LABS: CREATININE 9.3 mg/dL (0.6-1.3)
[2022-01-17] MEDS ORDERED: LORAZEPAM I2 MG/1 ML PO (08:27)
[2022-01-17] MEDS ORDERED: MORPHINE S100 MG/51 PO (08:27)
[2022-01-17] MEDS ORDERED: ZOFRAN ODT4 MG DISSOLVE (08:28)
[2022-01-17 15:30] VITALS: BP 73/30
[2022-01-17 16:00] VITALS: BP 73/30
== END 2022-01-17 17:55 | DRG 870 ==
LOC: M.ERS 08:37 → M.TBA-ER 10:31 → M.ICU 10:31 → M.2W 01-17 15:15
PROVIDERS: Emergency Medicine Emergency Medical Services; Internal Medicine; Internal Medicine Critical Care Medicine; Internal Medicine Nephrology; Internal Medicine Pulmonary Disease; Nurse Practitioner Adult Health; ADMIT Internal Medicine; ATTEND Internal Medicine
PROC: 30233K1 Transfusion of Nonautologous Frozen Plasma into Peripheral Vein, Percutaneous Approach (ICD-10-PCS; principal; 2022-01-06)
PROC: 0BH17EZ Insertion of Endotracheal Airway into Trachea, Via Natural or Artificial Opening (ICD-10-PCS; 2022-01-07)
PROC: 5A1955Z Respiratory Ventilation, Greater than 96 Consecutive Hours (ICD-10-PCS; 2022-01-07)
PROC: 05HY33Z Insertion of Infusion Device into Upper Vein, Percutaneous Approach (ICD-10-PCS; 2022-01-07)
PROC: 5A09357 Assistance with Respiratory Ventilation, Less than 24 Consecutive Hours, Continuous Positive Airway Pressure (ICD-10-PCS; 2022-01-07)
PROC: 0DH97UZ Insertion of Feeding Device into Duodenum, Via Natural or Artificial Opening (ICD-10-PCS; 2022-01-12)
PROC: 06HY33Z Insertion of Infusion Device into Lower Vein, Percutaneous Approach (ICD-10-PCS; 2022-01-14)
PROC: B54BZZA Ultrasonography of Right Lower Extremity Veins, Guidance (ICD-10-PCS; 2022-01-14)
PROC: 0DJ08ZZ Inspection of Upper Intestinal Tract, Via Natural or Artificial Opening Endoscopic (ICD-10-PCS; 2022-01-15)
PROC: 5A1D70Z Performance of Urinary Filtration, Intermittent, Less than 6 Hours Per Day (ICD-10-PCS; 2022-01-15)
DX: A41.9 Sepsis, unspecified organism (principal); J96.01 Acute respiratory failure with hypoxia; G93.41 Metabolic encephalopathy; K85.90 Acute pancreatitis without necrosis or infection, unspecified; K72.00 Acute and subacute hepatic failure without coma; J15.211 Pneumonia due to Methicillin susceptible Staphylococcus aureus; K76.7 Hepatorenal syndrome; K21.01 Gastro-esophageal reflux disease with esophagitis, with bleeding; E87.1 Hypo-osmolality and hyponatremia; N17.9 Acute kidney failure, unspecified; D68.9 Coagulation defect, unspecified; F10.139 Alcohol abuse with withdrawal, unspecified; K76.6 Portal hypertension; N39.0 Urinary tract infection, site not specified; B19.20 Unspecified viral hepatitis C without hepatic coma; I95.9 Hypotension, unspecified; R73.9 Hyperglycemia, unspecified; K70.10 Alcoholic hepatitis without ascites; D64.9 Anemia, unspecified; K44.9 Diaphragmatic hernia without obstruction or gangrene; K31.89 Other diseases of stomach and duodenum; Z51.5 Encounter for palliative care; Z66 Do not resuscitate; Z20.822 Contact with and (suspected) exposure to COVID-19